=== PATIENT | male | born 1950 | race Two or more races ===

== ENCOUNTER → 2017-11-09 | Outpatient (CLI) | payer OTHER ==
[~2017-11-09] MED LIST: ASPI81TA27 PO; LISI-646 PO
== END | disposition home or self-care (01) ==
LOC: Rad HDHVI 10:36
PROVIDERS: ATTEND Internal Medicine Cardiovascular Disease
DX: I70.0 Atherosclerosis of aorta (principal); I10 Essential (primary) hypertension; I20.0 Unstable angina
CPT/HCPCS: 93306

== ENCOUNTER → 2017-11-23 | Outpatient (CLI) | payer OTHER ==
[~2017-11-23] VITALS: Ht 157.5 cm; Wt 77.1 kg
== END | disposition home or self-care (01) ==
LOC: Rad HDHVI 07:52
PROVIDERS: ATTEND Internal Medicine Cardiovascular Disease
DX: I10 Essential (primary) hypertension (principal); I21.9 Acute myocardial infarction, unspecified; E78.5 Hyperlipidemia, unspecified; I12.9 Hypertensive chronic kidney disease with stage 1 through stage 4 chronic kidney disease, or unspecified chronic kidney disease; N18.2 Chronic kidney disease, stage 2 (mild); I20.0 Unstable angina; Z82.49 Family history of ischemic heart disease and other diseases of the circulatory system; Z79.899 Other long term (current) drug therapy
CPT/HCPCS: 78452; 93017; 96374; A9500

== ENCOUNTER 2019-12-12 10:51 | Inpatient (IN) | payer OTHER ==
[~2019-12-12] VITALS: Ht 157.5 cm; Wt 73.2 kg
[~2019-12-12 10:51] MED LIST changes: +ASPI-404 PO; -ASPI81TA27 PO
[2019-12-12] MEDS ORDERED: ASPirin 81 mg TAB PO ONE (11:15)
[2019-12-12 11:18] LABS: Basophils # (auto) 0 10 ^3/uL (0-0.2); Basophils % (auto) 0.7 % (0.0-2.0); Eosinophils # (auto) 0.1 10 ^3/uL (0-0.8); Eosinophils % (auto) 1.7 % (0.0-7.0); Hematocrit 48.8 % (41.0-53.0); Hemoglobin 16.9 g/dL (13.5-17.5); Lymphocytes % (auto) 32.4 % (10.0-50.0); Mean Corpuscular Hemoglobin 31.7 pg (28.0-32.0); Mean Corpuscular Hgb Conc. 34.7 g/dL (32.0-36.0); Mean Corpuscular Volume 91.3 fL (80.0-100.0); Monocytes # (auto) 0.8 10 ^3/uL (0-1.3); Monocytes % (auto) 12.7 % (0.0-12.0); Neutrophils # (auto) 3.3 10 ^3/uL (1.6-8.6); Neutrophils % (auto) 52.5 % (37.0-80.0); Nucleated Red Blood Cells % 0.1 %; Platelet Count (auto) 219 10^3/uL (140-450); Red Blood Cells 5.35 10^6/uL (4.5-5.90); Red Cell Distribution Width 13.8 % (11.8-14.3); White Blood Cell 6.2 10^3/uL (4.4-10.8)
[2019-12-12 11:39] LABS: Albumin 3.7 g/dL (3.4-5.0); Calcium 8.7 mg/dL (8.5-10.1); Magnesium 2.3 mg/dL (1.6-2.6); Potassium 4.1 mmol/L (3.5-5.1)
[2019-12-12 11:44] LABS: BUN/Creatinine Ratio 11.9; Bilirubin, Total 0.7 mg/dL (0.2-1.0); Total Protein 8.4 g/dL (6.4-8.2)
[2019-12-12] MEDS ORDERED: HEPARIN DRIP/D5W 100UNITS/ML 250 ML IV SCH (11:54)
[2019-12-12] MEDS ORDERED: HEPARIN 1,000 UNITS/ml 1ML VIAL IV ONE (12:00)
[2019-12-12] MEDS ORDERED: DEXTROSE (50%) 50ML SYRG IV PRN (12:00)
[2019-12-12] MEDS ORDERED: HEPARIN SODIUM (PORCINE) 5000 UNITS/ML 1ML VIAL IV ONE (12:00)
[2019-12-12] MEDS ORDERED: NITROGLYCERIN 0.4 MG SL TAB SL PRN (12:00)
[2019-12-12] MEDS ORDERED: MORPHINE SULF INJ 2 MG/ML SYRINGE 1ML IV PRN (12:00)
[2019-12-12 12:34] LABS: INR 1.03 (0.9-1.15); Partial Thromboplastin Time 27.3 sec (23.64-32.05)
[2019-12-12] MEDS ORDERED: SODIUM CHLORIDE 0.9% 500 ML IV ONE (14:33)
[2019-12-12] MEDS ORDERED: LIDOCAINE 2%HCL (LOCAL ANESTH.) INJ 20ML MDV ONE (15:04)
[2019-12-12] MEDS ORDERED: IOHEXOL 350 MG/ML 100ML IJ ONE (15:04)
[2019-12-12] MEDS ORDERED: ANGIOMAX 250 MG VIAL IV ONE (15:12)
[2019-12-12] MEDS ORDERED: MIDAZOLAM HCL 1MG/1ML-2 ML VIAL ONE (15:12)
[2019-12-12] MEDS ORDERED: fentaNYL CITRATE 100 MCG/2 ML VL ONE (15:12)
[2019-12-12] MEDS ORDERED: SODIUM CHL 0.9% 0 ML ONE (15:12)
[2019-12-12] MEDS: ACCU-CHEK COMFORT CURVE STRIP VI SCH ×2 (17:00→21:20)
[2019-12-12] MEDS: InsuLIN REG 1unit/0.01ml Soln (100units/ml) SC SCH ×2 (17:00→21:22)
[2019-12-12 17:19] VITALS: BP 146/87
[2019-12-12] MEDS: ATORVASTATIN 20 MG TAB PO SCH (21:20)
[2019-12-12 22:00] VITALS: BP 133/87
[2019-12-13 05:55] LABS: Basophils # (auto) 0.1 10 ^3/uL (0-0.2); Basophils % (auto) 0.7 % (0.0-2.0); Eosinophils # (auto) 0.1 10 ^3/uL (0-0.8); Eosinophils % (auto) 1.9 % (0.0-7.0); Hematocrit 45.7 % (41.0-53.0); Hemoglobin 16.1 g/dL (13.5-17.5); Lymphocytes % (auto) 29.6 % (10.0-50.0); Mean Corpuscular Hemoglobin 32.2 pg (28.0-32.0); Mean Corpuscular Hgb Conc. 35.2 g/dL (32.0-36.0); Mean Corpuscular Volume 91.5 fL (80.0-100.0); Monocytes # (auto) 0.4 10 ^3/uL (0-1.3); Monocytes % (auto) 6.3 % (0.0-12.0); Neutrophils # (auto) 4.2 10 ^3/uL (1.6-8.6); Neutrophils % (auto) 61.5 % (37.0-80.0); Nucleated Red Blood Cells % 0.1 %; Platelet Count (auto) 196 10^3/uL (140-450); Red Cell Distribution Width 13.6 % (11.8-14.3); White Blood Cell 6.8 10^3/uL (4.4-10.8)
[2019-12-13 06:03] VITALS: BP 125/77
[2019-12-13] MEDS: ACCU-CHEK COMFORT CURVE STRIP VI SCH ×2 (06:13→11:30)
[2019-12-13] MEDS: InsuLIN REG 1unit/0.01ml Soln (100units/ml) SC SCH ×2 (06:13→11:30)
[2019-12-13 06:22] LABS: BUN/Creatinine Ratio 14.4; Calcium 8.4 mg/dL (8.5-10.1); Potassium 3.8 mmol/L (3.5-5.1)
[2019-12-13 09:00] VITALS: BP 135/76
[2019-12-13] MEDS: ASPirin 81 mg TAB PO SCH (12:52)
[2019-12-13 13:20] VITALS: BP 143/86
[2019-12-13 17:00] VITALS: BP 129/83
[2019-12-13] MEDS: ATORVASTATIN 20 MG TAB PO SCH (21:10)
[2019-12-13 21:54] VITALS: BP 119/72
[2019-12-14] VITALS (7 sets, daily range): BP systolic 112–136; BP diastolic 69–84
[2019-12-14] MEDS ORDERED: ceFAZolin 1GM 2 GM in D5W 5% 50 ML IV ONE (06:15)
[2019-12-14] MEDS ORDERED: MORPHINE SULF INJ 2 MG/ML SYRINGE 1ML IV PRN (06:15)
[2019-12-14] MEDS ORDERED: NITROGLYCERIN 0.4 MG SL TAB SL PRN (06:15)
[2019-12-14 07:34] LABS: Basophils # (auto) 0.1 10 ^3/uL (0-0.2); Basophils % (auto) 0.7 % (0.0-2.0); Eosinophils # (auto) 0.1 10 ^3/uL (0-0.8); Hematocrit 45.5 % (41.0-53.0); Lymphocytes # (auto) 1.8 10 ^3/uL (0.4-5.4); Lymphocytes % (auto) 25.5 % (10.0-50.0); Mean Corpuscular Hemoglobin 31.8 pg (28.0-32.0); Mean Corpuscular Hgb Conc. 35.1 g/dL (32.0-36.0); Mean Corpuscular Volume 90.5 fL (80.0-100.0); Monocytes # (auto) 0.7 10 ^3/uL (0-1.3); Monocytes % (auto) 9.5 % (0.0-12.0); Neutrophils # (auto) 4.5 10 ^3/uL (1.6-8.6); Neutrophils % (auto) 62.3 % (37.0-80.0); Nucleated Red Blood Cells % 0.2 %; Platelet Count (auto) 200 10^3/uL (140-450); Red Blood Cells 5.03 10^6/uL (4.5-5.90); Red Cell Distribution Width 13.7 % (11.8-14.3); White Blood Cell 7.2 10^3/uL (4.4-10.8)
[2019-12-14 07:51] LABS: Albumin 3.2 g/dL (3.4-5.0); Calcium 8.3 mg/dL (8.5-10.1); Potassium 3.8 mmol/L (3.5-5.1)
[2019-12-14 07:53] LABS: BUN/Creatinine Ratio 16.5
[2019-12-14 07:56] LABS: Bilirubin, Total 0.9 mg/dL (0.2-1.0); Total Protein 7.1 g/dL (6.4-8.2)
[2019-12-14 08:46] LABS: Cholesterol 201 mg/dL (< 200); Triglycerides 215 mg/dL (< 150)
[2019-12-14 08:48] LABS: HDL Cholesterol 33 mg/dL (40-59); LDL Cholesterol 141 mg/dL (< 100)
[2019-12-14] MEDS: ASPirin 81 mg TAB PO SCH (10:17)
[2019-12-14] MEDS: ATORVASTATIN 20 MG TAB PO SCH (22:06)
[2019-12-15 04:30] VITALS: BP 110/71
[2019-12-15 06:21] LABS: Basophils # (auto) 0 10 ^3/uL (0-0.2); Basophils % (auto) 0.7 % (0.0-2.0); Eosinophils # (auto) 0.2 10 ^3/uL (0-0.8); Eosinophils % (auto) 2.3 % (0.0-7.0); Hematocrit 48.4 % (41.0-53.0); Hemoglobin 16.3 g/dL (13.5-17.5); Lymphocytes # (auto) 1.9 10 ^3/uL (0.4-5.4); Lymphocytes % (auto) 27.1 % (10.0-50.0); Mean Corpuscular Hemoglobin 30.7 pg (28.0-32.0); Mean Corpuscular Hgb Conc. 33.6 g/dL (32.0-36.0); Mean Corpuscular Volume 91.5 fL (80.0-100.0); Monocytes # (auto) 0.7 10 ^3/uL (0-1.3); Monocytes % (auto) 9.4 % (0.0-12.0); Neutrophils # (auto) 4.3 10 ^3/uL (1.6-8.6); Neutrophils % (auto) 60.5 % (37.0-80.0); Platelet Count (auto) 219 10^3/uL (140-450); Red Blood Cells 5.29 10^6/uL (4.5-5.90); Red Cell Distribution Width 13.8 % (11.8-14.3)
[2019-12-15 06:40] LABS: Calcium 8.7 mg/dL (8.5-10.1); Potassium 3.9 mmol/L (3.5-5.1)
[2019-12-15 06:46] LABS: Albumin 3.2 g/dL (3.4-5.0); Bilirubin, Total 0.8 mg/dL (0.2-1.0); Total Protein 7.4 g/dL (6.4-8.2)
[2019-12-15 09:00] VITALS: BP 134/84
[2019-12-15] MEDS: ASPirin 81 mg TAB PO SCH (10:00)
[2019-12-15 17:00] VITALS: BP 118/68
[2019-12-15 20:00] VITALS: BP 138/75
[2019-12-15] MEDS ORDERED: MUPIROCIN 2% OINT 15gm or 22gm TOP SCH (21:00)
[2019-12-15] MEDS: MUPIROCIN 2% OINT 15gm or 22gm TOP SCH (21:17)
[2019-12-15] MEDS: ATORVASTATIN 20 MG TAB PO SCH (21:34)
[2019-12-15 21:39] VITALS: BP 138/75
[2019-12-15] MEDS ORDERED: ASCORBIC ACID 500 MG TAB PO ONE (22:00)
[2019-12-16] VITALS (48 sets, daily range): BP systolic 21–152; BP diastolic 11–78
[2019-12-16] MEDS ORDERED: CHLORHEXIDINE 4% TOPICAL soln 118ml TOP ONE (02:00)
[2019-12-16] MEDS ORDERED: BACITRACIN INJ 50000 UNIT VIAL ONE ×2 (05:01→12:36)
[2019-12-16] MEDS ORDERED: NEOMYCIN-BACITRACIN-POLYM 15GM TOP OINT TOP ONE (05:01)
[2019-12-16] MEDS ORDERED: PAPAVERINE HCL 60 MG/2 ML 2ML VIAL ONE (05:01)
[2019-12-16] MEDS ORDERED: HEPARIN 1,000 UNITS/ml 1ML VIAL ONE (05:01)
[2019-12-16] MEDS ORDERED: VANCOMYCIN HCL 1000 MG VL ONE (05:02)
[2019-12-16] MEDS ORDERED: NITROGLYCERIN 50MG/250ML 250 ML IV ONE (05:39)
[2019-12-16] MEDS ORDERED: ROCURONIUM 10MG/ML 10ML VIAL IV ONE ×2 (05:42→07:52)
[2019-12-16] MEDS ORDERED: PROPOFOL 10 MG/ML 20 ML IV ONE ×2 (05:42→07:06)
[2019-12-16] MEDS ORDERED: PHENYLEPHRINE HCL 10 MG/ML VL ONE (05:43)
[2019-12-16] MEDS ORDERED: VANCOMYCIN 1GM/250ML 250 ML IV ONE ×2 (05:58→06:15)
[2019-12-16] MEDS ORDERED: HEPARIN 30000 UNITS in SODIUM CHLORIDE 0.9% 1000 ML IV ONE (06:00)
[2019-12-16] MEDS ORDERED: NOREPINEPHRINE 8 MG/250ML KIT 250 ML IV ONE (06:00)
[2019-12-16] MEDS ORDERED: InsuLIN R (HUMAN) 100 UNITS in SODIUM CHL 0.9% 99 ML IV ONE (06:00)
[2019-12-16] MEDS ORDERED: PHENYLEPHRINE INJ 20 MG in SODIUM CHL 0.9% 250 ML IV ONE (06:00)
[2019-12-16] MEDS ORDERED: TRANEXAMIC ACID 1,000 mg/10ml INJ VIAL IV ONE ×2 (06:00→15:15)
[2019-12-16] MEDS ORDERED: EPINEPHrine HCL 4 MG in D5W 5% 250 ML IV ONE (06:00)
[2019-12-16] MEDS ORDERED: AMINOCAPROIC ACID 10 GM in SODIUM CHL 0.9% 100 ML IV ONE (06:00)
[2019-12-16] MEDS ORDERED: AMINOCAPROIC ACID 5 GM in SODIUM CHL 0.9% 250 ML IV ONE (06:00)
[2019-12-16] MEDS ORDERED: TRANEXAMIC ACID 1,000 MG in SODIUM CHL 0.9% 100 ML IV ONE (06:00)
[2019-12-16] MEDS: MUPIROCIN 2% OINT 15gm or 22gm TOP SCH (06:06)
[2019-12-16] MEDS ORDERED: MIDAZOLAM HCL 1MG/1ML-2 ML VIAL ONE (06:08)
[2019-12-16] MEDS ORDERED: CHLORHEXIDINE 0.12% ORAL rinse 473ML MT ONE (06:15)
[2019-12-16] MEDS ORDERED: ACCU-CHEK COMFORT CURVE STRIP VI ONE (06:15)
[2019-12-16] MEDS ORDERED: ceFAZolin 1GM 2 GM in D5W 5% 50 ML IV ONE (06:15)
[2019-12-16] MEDS ORDERED: MANNITOL FTV 25% 12.5 GM/50 ML 100 ML IV ONE (07:01)
[2019-12-16] MEDS ORDERED: [UNRECOGNIZED DRUG - MIXTURE] INJ ONE (07:02)
[2019-12-16] MEDS ORDERED: ALBUMIN 25% 400 ML IV ONE (07:02)
[2019-12-16] MEDS ORDERED: MANNITOL 20 % (20GM/100ML) 500 ML IV ONE (07:02)
[2019-12-16] MEDS ORDERED: fentaNYL CITRATE 5 ML ONE ×2 (07:06→10:30)
[2019-12-16 08:49] LABS: Urine Bacteria NONE SEEN /hpf (None Seen); Urine Blood Negative /uL (Negative); Urine Specific Gravity 1.015 (1.001-1.035); Urine WBC <1 /hpf (0 - 3)
[2019-12-16] MEDS ORDERED: PROPOFOL 100 ML IV ONE (10:02)
[2019-12-16] MEDS ORDERED: PROTAMINE SULFATE 250 MG/25 ML VL IV ONE (10:12)
[2019-12-16] MEDS ORDERED: phytonadione 1 ML ONE (11:42)
[2019-12-16 12:21] LABS: Basophils # (auto) 0 10 ^3/uL (0-0.2); Eosinophils # (auto) 0 10 ^3/uL (0-0.8); Hematocrit 20.9 % (41.0-53.0); Lymphocytes % (auto) 10.1 % (10.0-50.0); Monocytes # (auto) 0.3 10 ^3/uL (0-1.3)
[2019-12-16 12:25] LABS: Basophils % (auto) 0.1 % (0.0-2.0); Eosinophils % (auto) 0.2 % (0.0-7.0); Hemoglobin 7.4 g/dL (13.5-17.5); Lymphocytes # (auto) 1.2 10 ^3/uL (0.4-5.4); Mean Corpuscular Hemoglobin 32.3 pg (28.0-32.0); Mean Corpuscular Hgb Conc. 35.4 g/dL (32.0-36.0); Mean Corpuscular Volume 91.2 fL (80.0-100.0); Monocytes % (auto) 2.5 % (0.0-12.0); Neutrophils # (auto) 10.1 10 ^3/uL (1.6-8.6); Neutrophils % (auto) 87.1 % (37.0-80.0); Platelet Count (auto) 107 10^3/uL (140-450); Red Blood Cells 2.29 10^6/uL (4.5-5.90); Red Cell Distribution Width 13.4 % (11.8-14.3); White Blood Cell 11.6 10^3/uL (4.4-10.8)
[2019-12-16 12:39] LABS: INR 1.45 (0.9-1.15)
[2019-12-16 12:47] LABS: Albumin 3.4 g/dL (3.4-5.0); Calcium 7.6 mg/dL (8.5-10.1); Potassium 4.6 mmol/L (3.5-5.1)
[2019-12-16 12:50] LABS: BUN/Creatinine Ratio 15.7; Bilirubin, Total 0.7 mg/dL (0.2-1.0); Total Protein 5.1 g/dL (6.4-8.2)
[2019-12-16] MEDS ORDERED: fentaNYL CITRATE 100 MCG/2 ML VL ONE (13:04)
[2019-12-16] MEDS: DOPamine 1600MCG/ML D5W 250 ML IV SCH (14:46)
[2019-12-16] MEDS: INSULIN DRIP 100 UNIT/100ML 100 ML IV SCH (14:46)
[2019-12-16] MEDS: NOREPINEPHRINE 8 MG/250ML KIT 250 ML IV SCH (14:46)
[2019-12-16] MEDS: SODIUM CHLORIDE 0.9% 500 ML IV SCH ×2 (14:46→23:15)
[2019-12-16] MEDS: MILRINONE 20MG/100ML 100 ML IV SCH ×2 (14:46→23:29)
[2019-12-16] MEDS ORDERED: NITROGLYCERIN 50MG/250ML 250 ML IV SCH (14:46)
[2019-12-16] MEDS: PHENYLEPHRINE IV 250 ML IV SCH (14:46)
[2019-12-16 14:48] LABS: Basophils # (auto) 0 10 ^3/uL (0-0.2); Basophils % (auto) 0.3 % (0.0-2.0); Eosinophils # (auto) 0 10 ^3/uL (0-0.8); Eosinophils % (auto) 0.1 % (0.0-7.0); Hematocrit 24.2 % (41.0-53.0); Hemoglobin 8.8 g/dL (13.5-17.5); Lymphocytes # (auto) 0.6 10 ^3/uL (0.4-5.4); Lymphocytes % (auto) 8.1 % (10.0-50.0); Mean Corpuscular Hemoglobin 32.1 pg (28.0-32.0); Mean Corpuscular Hgb Conc. 36.2 g/dL (32.0-36.0); Mean Corpuscular Volume 88.6 fL (80.0-100.0); Monocytes # (auto) 0.6 10 ^3/uL (0-1.3); Monocytes % (auto) 7.6 % (0.0-12.0); Neutrophils # (auto) 6.4 10 ^3/uL (1.6-8.6); Neutrophils % (auto) 83.9 % (37.0-80.0); Platelet Count (auto) 104 10^3/uL (140-450); Red Blood Cells 2.73 10^6/uL (4.5-5.90); Red Cell Distribution Width 14.4 % (11.8-14.3); White Blood Cell 7.7 10^3/uL (4.4-10.8)
[2019-12-16] MEDS ORDERED: AMIODARONE HCL 900 MG in DEXTROSE 500 ML IV SCH (14:56)
[2019-12-16] MEDS ORDERED: SODIUM BICARBONATE 8.4% INJ 50ML SYRINGE IV PRN (15:00)
[2019-12-16] MEDS ORDERED: AMIODARONE HCL 150 MG in D5W 5% 100 ML IV ONE (15:00)
[2019-12-16] MEDS ORDERED: ONDANSETRON HCL 4 MG/2 ML VIAL IV PRN (15:00)
[2019-12-16] MEDS ORDERED: MORPHINE SULFATE 4 MG/ML SYR/VIAL IV PRN (15:00)
[2019-12-16] MEDS ORDERED: DEXTROSE (50%) 50ML SYRG IV PRN (15:00)
[2019-12-16] MEDS ORDERED: METOCLOPRAMIDE HCL 5MG/ml INJ 2ml VIAL IV PRN (15:00)
[2019-12-16] MEDS ORDERED: MORPHINE SULF INJ 2 MG/ML SYRINGE 1ML IV PRN (15:00)
[2019-12-16] MEDS ORDERED: fentaNYL CITRATE 100 MCG/2 ML VL IV PRN (15:00)
[2019-12-16] MEDS: ACCU-CHEK COMFORT CURVE STRIP VI SCH ×9 (15:00→23:13)
[2019-12-16] MEDS: D5W/SOD CHL 0.45% 1,000 ML IV SCH ×2 (15:00→23:00)
[2019-12-16] MEDS ORDERED: ALBUMIN 25% 250 ML IV PRN (15:00)
[2019-12-16] MEDS ORDERED: ZOLPIDEM TARTRATE 5 MG TAB PO PRN (15:00)
[2019-12-16] MEDS ORDERED: CALCIUM GLUC 4.65meq/50ml D5AE 50 ML IV PRN (15:00)
[2019-12-16] MEDS ORDERED: NITROGLYCERIN 0.4 MG SL TAB SL PRN (15:00)
[2019-12-16] MEDS ORDERED: MAGNESIUM SULFATE 1GM/100ML 100 ML IV PRN (15:00)
[2019-12-16 15:04] LABS: INR 1.23 (0.9-1.15)
[2019-12-16] MEDS ORDERED: FUROSEMIDE 20 MG/2 ML VIAL IV ONE (15:15)
[2019-12-16] MEDS ORDERED: LIDOCAINE HCL 100 MG/5ML (2%) SYRG INJ IV ONE (15:15)
[2019-12-16] MEDS ORDERED: POTASSIUM CHL 2MEQ/ML 20ML IV ONE (15:15)
[2019-12-16] MEDS ORDERED: HEPARIN SODIUM (PORCINE) 5000 UNITS/ML 1ML VIAL SC ONE (15:15)
[2019-12-16] MEDS ORDERED: CALCIUM CHLOR(10%) 100MG/ML 10ML SYRINGE IV ONE (15:15)
[2019-12-16] MEDS ORDERED: SODIUM BICARBONATE 8.4 % INJ 50ML VIAL IV ONE (15:15)
[2019-12-16] MEDS ORDERED: MAGNESIUM SULF 50% 40 MEQ/10 ML VL IV ONE (15:15)
[2019-12-16] MEDS ORDERED: CALCIUM GLUC 4.65 MEQ/10ML IV ONE (15:15)
[2019-12-16] MEDS ORDERED: ADENOSINE 6 MG/2 ML INJ IV ONE (15:15)
[2019-12-16] MEDS ORDERED: PHENYLEPHRINE HCL 10 MG/ML VL IV ONE (15:15)
[2019-12-16] MEDS ORDERED: fentaNYL Drip 2500mCg/250mlNS 250 ML IV ONE (16:15)
[2019-12-16] MEDS: MORPHINE SULFATE 4 MG/ML SYR/VIAL IV PRN (16:17)
[2019-12-16 16:33] LABS: Albumin 3.7 g/dL (3.4-5.0); Calcium 7.4 mg/dL (8.5-10.1); Magnesium 3.4 mg/dL (1.6-2.6); Potassium 3.8 mmol/L (3.5-5.1)
[2019-12-16 16:36] LABS: BUN/Creatinine Ratio 13.4; Bilirubin, Total 1.9 mg/dL (0.2-1.0); Phosphorus 1.1 mg/dL (2.5-4.90); Total Protein 5.9 g/dL (6.4-8.2)
[2019-12-16] MEDS: fentaNYL Drip 2500mCg/250mlNS 250 ML IV SCH (16:40)
[2019-12-16] MEDS: VANCOMYCIN 1GM/250ML 250 ML IV SCH (16:48)
[2019-12-16] MEDS: POTASSIUM CHL 20MEQ/100ML 100 ML IV PRN ×4 (17:37→23:16)
[2019-12-16] MEDS ORDERED: SODIUM PHOSPHATES 24 MEQ in SODIUM CHL 0.9% 100 ML IV ONE (17:45)
[2019-12-16] MEDS: ALBUTEROL SULF 2.5 MG/0.5ML(0.5%) NEB SOLN NEB SCH ×2 (18:02→22:02)
[2019-12-16] MEDS: IPRATROPIUM BROM 0.5 MG/2.5ML INH SOL NEB SCH ×2 (18:03→22:02)
[2019-12-16] MEDS: ceFAZolin 1GM 2 GM in D5W 5% 100 ML IV SCH ×2 (18:17→23:13)
[2019-12-16] MEDS: PROPOFOL 100 ML IV SCH ×2 (18:48→23:14)
[2019-12-16] MEDS: AMIODARONE HCL 900 MG in DEXTROSE 500 ML IV SCH (20:44)
[2019-12-16] MEDS: CHLORHEXIDINE 0.12% ORAL rinse 473ML MT SCH (20:44)
[2019-12-16] MEDS ORDERED: NITROGLYCERIN 50MG/250ML BTL IV ONE (20:55)
[2019-12-16 22:00] LABS: BUN/Creatinine Ratio 12.9; Calcium 7.2 mg/dL (8.5-10.1); Potassium 3.2 mmol/L (3.5-5.1)
[2019-12-16] MEDS: ACETYLCYSTEINE 10 %(100MG/ML) SOL 4ML NEB SCH (22:02)
[2019-12-16 22:06] LABS: Phosphorus 0.4 mg/dL (2.5-4.90)
[2019-12-17] VITALS (85 sets, daily range): BP systolic 16–197; BP diastolic 3–89
[2019-12-17] MEDS: ACCU-CHEK COMFORT CURVE STRIP VI SCH ×18 (01:00→23:30)
[2019-12-17 01:04] LABS: Basophils # (auto) 0 10 ^3/uL (0-0.2); Basophils % (auto) 0.1 % (0.0-2.0); Eosinophils # (auto) 0 10 ^3/uL (0-0.8); Hematocrit 22.2 % (41.0-53.0); Hemoglobin 8.1 g/dL (13.5-17.5); Lymphocytes # (auto) 0.4 10 ^3/uL (0.4-5.4); Lymphocytes % (auto) 6.7 % (10.0-50.0); Mean Corpuscular Hemoglobin 31.7 pg (28.0-32.0); Mean Corpuscular Hgb Conc. 36.2 g/dL (32.0-36.0); Mean Corpuscular Volume 87.5 fL (80.0-100.0); Monocytes # (auto) 0.3 10 ^3/uL (0-1.3); Monocytes % (auto) 3.8 % (0.0-12.0); Neutrophils % (auto) 89.4 % (37.0-80.0); Platelet Count (auto) 165 10^3/uL (140-450); Red Blood Cells 2.54 10^6/uL (4.5-5.90); White Blood Cell 6.7 10^3/uL (4.4-10.8)
[2019-12-17 01:18] LABS: Magnesium 2.6 mg/dL (1.6-2.6); Potassium 3.8 mmol/L (3.5-5.1)
[2019-12-17] MEDS: POTASSIUM CHL 20MEQ/100ML 100 ML IV PRN ×4 (01:42→06:16)
[2019-12-17] MEDS: INSULIN DRIP 100 UNIT/100ML 100 ML IV SCH (01:45)
[2019-12-17] MEDS: VANCOMYCIN 1GM/250ML 250 ML IV SCH ×2 (03:00→16:34)
[2019-12-17] MEDS: PROPOFOL 100 ML IV SCH ×2 (03:44→10:55)
[2019-12-17 05:13] LABS: Basophils # (auto) 0 10 ^3/uL (0-0.2); Eosinophils # (auto) 0 10 ^3/uL (0-0.8); Hemoglobin 8.2 g/dL (13.5-17.5); Lymphocytes # (auto) 0.6 10 ^3/uL (0.4-5.4); Lymphocytes % (auto) 6.7 % (10.0-50.0); Red Blood Cells 2.61 10^6/uL (4.5-5.90)
[2019-12-17 05:16] LABS: Basophils % (auto) 0.1 % (0.0-2.0); Hematocrit 22.7 % (41.0-53.0); Mean Corpuscular Hemoglobin 31.5 pg (28.0-32.0); Mean Corpuscular Hgb Conc. 36.3 g/dL (32.0-36.0); Mean Corpuscular Volume 86.9 fL (80.0-100.0); Monocytes # (auto) 0.6 10 ^3/uL (0-1.3); Monocytes % (auto) 6.7 % (0.0-12.0); Neutrophils # (auto) 7.4 10 ^3/uL (1.6-8.6); Neutrophils % (auto) 86.5 % (37.0-80.0); Platelet Count (auto) 176 10^3/uL (140-450); Red Cell Distribution Width 15.2 % (11.8-14.3); White Blood Cell 8.5 10^3/uL (4.4-10.8)
[2019-12-17 05:31] LABS: Potassium 3.9 mmol/L (3.5-5.1)
[2019-12-17 05:35] LABS: Albumin 3.3 g/dL (3.4-5.0); BUN/Creatinine Ratio 13.7; Calcium 7.6 mg/dL (8.5-10.1); Magnesium 2.6 mg/dL (1.6-2.6)
[2019-12-17 05:38] LABS: Bilirubin, Total 0.7 mg/dL (0.2-1.0); Total Protein 5.9 g/dL (6.4-8.2)
[2019-12-17 05:47] LABS: Phosphorus 0.9 mg/dL (2.5-4.90)
[2019-12-17] MEDS: ACETYLCYSTEINE 10 %(100MG/ML) SOL 4ML NEB SCH ×3 (05:48→22:29)
[2019-12-17] MEDS: ALBUTEROL SULF 2.5 MG/0.5ML(0.5%) NEB SOLN NEB SCH ×5 (05:48→22:29)
[2019-12-17] MEDS: IPRATROPIUM BROM 0.5 MG/2.5ML INH SOL NEB SCH ×5 (05:48→22:29)
[2019-12-17] MEDS: ceFAZolin 1GM 2 GM in D5W 5% 100 ML IV SCH ×3 (06:38→23:00)
[2019-12-17] MEDS: DOPamine 1600MCG/ML D5W 250 ML IV SCH ×2 (06:39→22:48)
[2019-12-17] MEDS: D5W/SOD CHL 0.45% 1,000 ML IV SCH ×3 (07:00→23:00)
[2019-12-17] MEDS: MORPHINE SULFATE 4 MG/ML SYR/VIAL IV PRN (07:54)
[2019-12-17] MEDS ORDERED: FUROSEMIDE 20 MG/2 ML VIAL IV ONE ×2 (08:00→21:45)
[2019-12-17] MEDS ORDERED: PANTOPRAZOLE 40 MG/10 ML VIAL INJ IV SCH (10:00)
[2019-12-17 10:12] LABS: Magnesium 2.7 mg/dL (1.6-2.6); Potassium 4.1 mmol/L (3.5-5.1)
[2019-12-17] MEDS: CHLORHEXIDINE 0.12% ORAL rinse 473ML MT SCH ×2 (10:20→22:00)
[2019-12-17] MEDS: MILRINONE 20MG/100ML 100 ML IV SCH ×2 (10:30→22:49)
[2019-12-17] MEDS ORDERED: SODIUM PHOSPHATES 40 MEQ in D5W 5% 250 ML IV ONE (11:15)
[2019-12-17] MEDS ORDERED: BISACODYL 10 MG RECT SUPP PR PRN (13:45)
[2019-12-17] MEDS ORDERED: ZOLPIDEM TARTRATE 5 MG TAB PO PRN (13:45)
[2019-12-17] MEDS ORDERED: MILK OF MAGNESIA 30ML SUSP PO PRN (13:45)
[2019-12-17] MEDS ORDERED: DEXTROSE (50%) 50ML SYRG IV PRN (13:45)
[2019-12-17] MEDS ORDERED: SENNA 8.6 MG TAB PO PRN (13:45)
[2019-12-17] MEDS ORDERED: ONDANSETRON HCL 4 MG/2 ML VIAL IV PRN (13:45)
[2019-12-17] MEDS: InsuLIN REG 1unit/0.01ml Soln (100units/ml) SC SCH ×3 (14:00→23:30)
[2019-12-17 14:37] LABS: Basophils # (auto) 0 10 ^3/uL (0-0.2); Eosinophils # (auto) 0 10 ^3/uL (0-0.8); Hematocrit 24.5 % (41.0-53.0); Hemoglobin 8.5 g/dL (13.5-17.5); Lymphocytes # (auto) 0.7 10 ^3/uL (0.4-5.4); Lymphocytes % (auto) 6.4 % (10.0-50.0); Mean Corpuscular Hemoglobin 30.4 pg (28.0-32.0); Mean Corpuscular Hgb Conc. 34.8 g/dL (32.0-36.0); Mean Corpuscular Volume 87.4 fL (80.0-100.0); Monocytes % (auto) 8.5 % (0.0-12.0); Neutrophils # (auto) 9.9 10 ^3/uL (1.6-8.6); Neutrophils % (auto) 85.1 % (37.0-80.0); Platelet Count (auto) 185 10^3/uL (140-450); Red Cell Distribution Width 15.4 % (11.8-14.3); White Blood Cell 11.6 10^3/uL (4.4-10.8)
[2019-12-17] MEDS: PHENYLEPHRINE IV 250 ML IV SCH (14:46)
[2019-12-17] MEDS: NOREPINEPHRINE 8 MG/250ML KIT 250 ML IV SCH (14:46)
[2019-12-17 14:59] LABS: Calcium 7.7 mg/dL (8.5-10.1); Magnesium 2.9 mg/dL (1.6-2.6); Phosphorus 4.7 mg/dL (2.5-4.90); Potassium 4.3 mmol/L (3.5-5.1)
[2019-12-17] MEDS ORDERED: diphenhdrAMINE HCL 50 MG/1 ML VL ONE (15:08)
[2019-12-17] MEDS ORDERED: methylPREDNISolone SOD SUCC 125 MG/2 ML VL ONE (15:08)
[2019-12-17] MEDS ORDERED: diphenhdrAMINE HCL 50 MG/1 ML VL IV ONE (15:15)
[2019-12-17] MEDS ORDERED: methylPREDNISolone SOD SUCC 125 MG/2 ML VL IV ONE (15:15)
[2019-12-17] MEDS ORDERED: AML5T PO (15:48)
[2019-12-17] MEDS ORDERED: ATOR1TAB PO (15:48)
[2019-12-17] MEDS ORDERED: ASPI-231 PO (15:48)
[2019-12-17] MEDS ORDERED: METO25TA5 PO (15:48)
[2019-12-17] MEDS ORDERED: LISI10TA6 PO (15:48)
[2019-12-17] MEDS ORDERED: CLOP75TA41 PO (15:48)
[2019-12-17] MEDS: fentaNYL Drip 2500mCg/250mlNS 250 ML IV SCH (16:11)
[2019-12-17] MEDS ORDERED: NITROGLYCERIN 0.4MG/HR TOPICAL PATCH TD ONE (16:29)
[2019-12-17] MEDS: NITROGLYCERIN 0.4MG/HR TOPICAL PATCH TD SCH (16:31)
[2019-12-17] MEDS: fentaNYL CITRATE 100 MCG/2 ML VL IV PRN ×2 (20:17→23:15)
[2019-12-17] MEDS: AMIODARONE HCL 900 MG in DEXTROSE 500 ML IV SCH (20:56)
[2019-12-17] MEDS ORDERED: FUROSEMIDE 20 MG/2 ML VIAL ONE (21:54)
[2019-12-17] MEDS: ASCORBIC ACID 500 MG TAB PO SCH (22:00)
[2019-12-17] MEDS: ATORVASTATIN 20 MG TAB PO SCH (22:00)
[2019-12-17] MEDS: POTASSIUM CHL 20 Meq TABLET PO SCH (22:00)
[2019-12-17] MEDS: METOPROLOL TARTRATE 25 MG TAB PO SCH (22:00)
[2019-12-17] MEDS: DOCUSATE SOD 100 MG CAP PO SCH (22:00)
[2019-12-18] VITALS (84 sets, daily range): BP systolic 120–163; BP diastolic 71–104
[2019-12-18] MEDS: InsuLIN REG 1unit/0.01ml Soln (100units/ml) SC SCH ×4 (02:30→18:00)
[2019-12-18] MEDS: IPRATROPIUM BROM 0.5 MG/2.5ML INH SOL NEB SCH ×5 (02:33→22:10)
[2019-12-18] MEDS: ALBUTEROL SULF 2.5 MG/0.5ML(0.5%) NEB SOLN NEB SCH ×5 (02:33→22:11)
[2019-12-18 02:34] LABS: Basophils # (auto) 0 10 ^3/uL (0-0.2); Eosinophils # (auto) 0 10 ^3/uL (0-0.8); Hematocrit 25.3 % (41.0-53.0); Hemoglobin 8.7 g/dL (13.5-17.5); Lymphocytes # (auto) 0.9 10 ^3/uL (0.4-5.4); Lymphocytes % (auto) 7.2 % (10.0-50.0); Mean Corpuscular Hemoglobin 30.6 pg (28.0-32.0); Mean Corpuscular Hgb Conc. 34.6 g/dL (32.0-36.0); Mean Corpuscular Volume 88.6 fL (80.0-100.0); Monocytes % (auto) 8.5 % (0.0-12.0); Neutrophils # (auto) 10.1 10 ^3/uL (1.6-8.6); Neutrophils % (auto) 84.3 % (37.0-80.0); Platelet Count (auto) 187 10^3/uL (140-450); Red Blood Cells 2.86 10^6/uL (4.5-5.90); Red Cell Distribution Width 15.2 % (11.8-14.3); White Blood Cell 11.9 10^3/uL (4.4-10.8)
[2019-12-18] MEDS: ACCU-CHEK COMFORT CURVE STRIP VI SCH ×5 (02:38→23:43)
[2019-12-18 02:57] LABS: Albumin 3.7 g/dL (3.4-5.0); BUN/Creatinine Ratio 16.5; Calcium 7.7 mg/dL (8.5-10.1); Magnesium 2.5 mg/dL (1.6-2.6); Potassium 4.1 mmol/L (3.5-5.1)
[2019-12-18 02:59] LABS: Bilirubin, Total 0.6 mg/dL (0.2-1.0); Total Protein 6.9 g/dL (6.4-8.2)
[2019-12-18] MEDS: VANCOMYCIN 1GM/250ML 250 ML IV SCH (03:00)
[2019-12-18 03:11] LABS: INR 1.01 (0.9-1.15)
[2019-12-18] MEDS: ACETYLCYSTEINE 10 %(100MG/ML) SOL 4ML NEB SCH ×3 (06:35→22:11)
[2019-12-18] MEDS: ceFAZolin 1GM 2 GM in D5W 5% 100 ML IV SCH (06:49)
[2019-12-18] MEDS: D5W/SOD CHL 0.45% 1,000 ML IV SCH ×2 (07:00→15:00)
[2019-12-18] MEDS ORDERED: MORPHINE SULFATE 4 MG/ML SYR/VIAL IV PRN (08:00)
[2019-12-18] MEDS ORDERED: fentaNYL CITRATE 100 MCG/2 ML VL IV ONE (08:00)
[2019-12-18] MEDS ORDERED: FUROSEMIDE 40 MG TAB PO SCH (08:00)
[2019-12-18] MEDS: MILRINONE 20MG/100ML 100 ML IV SCH ×2 (09:30→20:11)
[2019-12-18] MEDS: ASCORBIC ACID 500 MG TAB PO SCH ×2 (10:00→22:06)
[2019-12-18] MEDS: CHLORHEXIDINE 0.12% ORAL rinse 473ML MT SCH ×2 (10:00→22:11)
[2019-12-18] MEDS: POTASSIUM CHL 20 Meq TABLET PO SCH ×2 (10:00→22:00)
[2019-12-18] MEDS: DOCUSATE SOD 100 MG CAP PO SCH ×2 (10:00→22:00)
[2019-12-18] MEDS: PANTOPRAZOLE 40 MG/10 ML VIAL INJ IV SCH (10:00)
[2019-12-18] MEDS: METOPROLOL TARTRATE 25 MG TAB PO SCH ×2 (10:00→22:00)
[2019-12-18] MEDS: ASPirin 81 mg TAB PO SCH (10:00)
[2019-12-18] MEDS ORDERED: FUROSEMIDE 20 MG/2 ML VIAL IV ONE (11:00)
[2019-12-18] MEDS: fentaNYL CITRATE 100 MCG/2 ML VL IV PRN ×2 (11:02→17:01)
[2019-12-18] MEDS: NITROGLYCERIN 0.4MG/HR TOPICAL PATCH TD SCH (11:15)
[2019-12-18] MEDS ORDERED: KETOROLAC TROMETH 15 mg/ml 1ML VL IV SCH (12:00)
[2019-12-18] MEDS: KETOROLAC TROMETH 15 mg/ml 1ML VL IV SCH ×2 (13:15→19:38)
[2019-12-18] MEDS ORDERED: KETOROLAC TROMETH 30 MG/ML 1ML VIAL ONE (13:15)
[2019-12-18] MEDS: PHENYLEPHRINE IV 250 ML IV SCH (14:46)
[2019-12-18] MEDS: NOREPINEPHRINE 8 MG/250ML KIT 250 ML IV SCH (14:46)
[2019-12-18] MEDS: DOPamine 1600MCG/ML D5W 250 ML IV SCH (15:24)
[2019-12-18] MEDS: SODIUM CHLORIDE 0.9% 500 ML IV SCH (15:24)
[2019-12-18] MEDS ORDERED: DEXTROSE (50%) 50ML SYRG IV PRN (15:30)
[2019-12-18] MEDS: POTASSIUM CHL 20MEQ/100ML 100 ML IV PRN ×2 (17:03→19:37)
[2019-12-18] MEDS: METOPROLOL TARTRATE 1MG/1ML-5ML VIAL IV SCH ×2 (18:38→23:43)
[2019-12-18] MEDS: Glucerna Carbsteady SHAKE Vanilla 8oz PO SCH (20:00)
[2019-12-18] MEDS: AMIODARONE HCL 900 MG in DEXTROSE 500 ML IV SCH (20:56)
[2019-12-18] MEDS: ATORVASTATIN 20 MG TAB PO SCH (22:07)
[2019-12-18] MEDS: HYDROcodone-ACET 5/325MG TAB PO PRN (22:14)
[2019-12-19] VITALS (41 sets, daily range): BP systolic 91–167; BP diastolic 58–102
[2019-12-19] MEDS: InsuLIN REG 1unit/0.01ml Soln (100units/ml) SC SCH ×4 (00:02→19:36)
[2019-12-19] MEDS: KETOROLAC TROMETH 15 mg/ml 1ML VL IV SCH ×2 (01:36→09:28)
[2019-12-19] MEDS: fentaNYL CITRATE 100 MCG/2 ML VL IV PRN ×3 (04:33→14:44)
[2019-12-19 05:03] LABS: Basophils # (auto) 0 10 ^3/uL (0-0.2); Basophils % (auto) 0.3 % (0.0-2.0); Eosinophils # (auto) 0 10 ^3/uL (0-0.8); Eosinophils % (auto) 0.1 % (0.0-7.0); Hematocrit 26.4 % (41.0-53.0); Hemoglobin 9.2 g/dL (13.5-17.5); Lymphocytes # (auto) 1.7 10 ^3/uL (0.4-5.4); Lymphocytes % (auto) 13.7 % (10.0-50.0); Mean Corpuscular Hemoglobin 31.4 pg (28.0-32.0); Mean Corpuscular Hgb Conc. 34.9 g/dL (32.0-36.0); Mean Corpuscular Volume 89.9 fL (80.0-100.0); Monocytes % (auto) 8.1 % (0.0-12.0); Neutrophils # (auto) 9.9 10 ^3/uL (1.6-8.6); Neutrophils % (auto) 77.8 % (37.0-80.0); Platelet Count (auto) 154 10^3/uL (140-450); Red Blood Cells 2.94 10^6/uL (4.5-5.90); Red Cell Distribution Width 14.8 % (11.8-14.3); White Blood Cell 12.7 10^3/uL (4.4-10.8)
[2019-12-19 05:19] LABS: Albumin 3.5 g/dL (3.4-5.0); Calcium 8.2 mg/dL (8.5-10.1); Magnesium 2.7 mg/dL (1.6-2.6); Potassium 3.9 mmol/L (3.5-5.1)
[2019-12-19 05:23] LABS: BUN/Creatinine Ratio 25.6; Bilirubin, Total 1.1 mg/dL (0.2-1.0); Total Protein 6.9 g/dL (6.4-8.2)
[2019-12-19] MEDS: METOPROLOL TARTRATE 1MG/1ML-5ML VIAL IV SCH (06:24)
[2019-12-19] MEDS: POTASSIUM CHL 20MEQ/100ML 100 ML IV PRN (06:24)
[2019-12-19] MEDS: ACCU-CHEK COMFORT CURVE STRIP VI SCH ×3 (06:33→18:00)
[2019-12-19] MEDS: MILRINONE 20MG/100ML 100 ML IV SCH ×2 (06:34→16:16)
[2019-12-19] MEDS: DOPamine 1600MCG/ML D5W 250 ML IV SCH ×2 (06:34→22:51)
[2019-12-19] MEDS: ALBUTEROL SULF 2.5 MG/0.5ML(0.5%) NEB SOLN NEB SCH ×5 (07:11→22:13)
[2019-12-19] MEDS: IPRATROPIUM BROM 0.5 MG/2.5ML INH SOL NEB SCH ×5 (07:11→22:13)
[2019-12-19] MEDS: ACETYLCYSTEINE 10 %(100MG/ML) SOL 4ML NEB SCH ×3 (07:12→22:13)
[2019-12-19] MEDS: Glucerna Carbsteady SHAKE Vanilla 8oz PO SCH ×3 (08:45→18:30)
[2019-12-19] MEDS: CHLORHEXIDINE 0.12% ORAL rinse 473ML MT SCH ×2 (09:28→21:52)
[2019-12-19] MEDS: DOCUSATE SOD 100 MG CAP PO SCH ×2 (09:29→21:52)
[2019-12-19] MEDS: ASPirin 81 mg TAB PO SCH (09:29)
[2019-12-19] MEDS: METOPROLOL TARTRATE 25 MG TAB PO SCH ×2 (10:30→21:51)
[2019-12-19] MEDS: NITROGLYCERIN 0.4MG/HR TOPICAL PATCH TD SCH (10:30)
[2019-12-19] MEDS: POTASSIUM CHL 20 Meq TABLET PO SCH ×2 (10:30→21:51)
[2019-12-19] MEDS: ASCORBIC ACID 500 MG TAB PO SCH ×2 (10:30→21:52)
[2019-12-19] MEDS: PANTOPRAZOLE 40 MG/10 ML VIAL INJ IV SCH (10:30)
[2019-12-19] MEDS ORDERED: FUROSEMIDE 20 MG TAB PO ONE (11:45)
[2019-12-19] MEDS: HYDROcodone-ACET 5/325MG TAB PO PRN (12:31)
[2019-12-19] MEDS: ALPRAZolam 0.5 MG TAB PO PRN (14:45)
[2019-12-19] MEDS: FUROSEMIDE 20 MG TAB PO SCH (18:15)
[2019-12-19] MEDS: AMIODARONE HCL 900 MG in DEXTROSE 500 ML IV SCH (20:56)
[2019-12-19] MEDS: ATORVASTATIN 20 MG TAB PO SCH (21:52)
[2019-12-20] VITALS (25 sets, daily range): BP systolic 93–146; BP diastolic 61–83
[2019-12-20] MEDS: ACCU-CHEK COMFORT CURVE STRIP VI SCH ×4 (00:05→18:04)
[2019-12-20] MEDS: ALPRAZolam 0.5 MG TAB PO PRN (00:21)
[2019-12-20] MEDS: MILRINONE 20MG/100ML 100 ML IV SCH ×2 (04:14→14:55)
[2019-12-20] MEDS: InsuLIN REG 1unit/0.01ml Soln (100units/ml) SC SCH ×4 (06:00→18:00)
[2019-12-20] MEDS: FUROSEMIDE 20 MG TAB PO SCH ×2 (06:29→18:05)
[2019-12-20] MEDS: Glucerna Carbsteady SHAKE Vanilla 8oz PO SCH ×3 (08:00→18:04)
[2019-12-20] MEDS: ALBUTEROL SULF 2.5 MG/0.5ML(0.5%) NEB SOLN NEB SCH ×5 (08:11→22:25)
[2019-12-20] MEDS: ACETYLCYSTEINE 10 %(100MG/ML) SOL 4ML NEB SCH ×3 (08:11→22:26)
[2019-12-20] MEDS: IPRATROPIUM BROM 0.5 MG/2.5ML INH SOL NEB SCH ×5 (08:11→22:25)
[2019-12-20 09:26] LABS: Basophils # (auto) 0 10 ^3/uL (0-0.2); Basophils % (auto) 0.2 % (0.0-2.0); Eosinophils # (auto) 0.1 10 ^3/uL (0-0.8); Eosinophils % (auto) 1.3 % (0.0-7.0); Hematocrit 26.7 % (41.0-53.0); Hemoglobin 9.3 g/dL (13.5-17.5); Lymphocytes # (auto) 1.9 10 ^3/uL (0.4-5.4); Lymphocytes % (auto) 20.6 % (10.0-50.0); Mean Corpuscular Hemoglobin 31.3 pg (28.0-32.0); Mean Corpuscular Hgb Conc. 34.8 g/dL (32.0-36.0); Monocytes # (auto) 0.9 10 ^3/uL (0-1.3); Neutrophils # (auto) 6.1 10 ^3/uL (1.6-8.6); Neutrophils % (auto) 67.9 % (37.0-80.0); Nucleated Red Blood Cells % 0.1 %; Platelet Count (auto) 193 10^3/uL (140-450); Red Blood Cells 2.97 10^6/uL (4.5-5.90); Red Cell Distribution Width 14.5 % (11.8-14.3); White Blood Cell 9.1 10^3/uL (4.4-10.8)
[2019-12-20 09:43] LABS: Potassium 4.2 mmol/L (3.5-5.1)
[2019-12-20 09:50] LABS: Albumin 3.3 g/dL (3.4-5.0); Bilirubin, Total 1.6 mg/dL (0.2-1.0); Calcium 8.1 mg/dL (8.5-10.1); Total Protein 6.6 g/dL (6.4-8.2)
[2019-12-20] MEDS: POTASSIUM CHL 20 Meq TABLET PO SCH ×2 (10:47→22:00)
[2019-12-20] MEDS: METOPROLOL TARTRATE 25 MG TAB PO SCH ×2 (10:47→22:12)
[2019-12-20] MEDS: NITROGLYCERIN 0.4MG/HR TOPICAL PATCH TD SCH (10:47)
[2019-12-20] MEDS: DOCUSATE SOD 100 MG CAP PO SCH ×2 (10:48→22:00)
[2019-12-20] MEDS: ASCORBIC ACID 500 MG TAB PO SCH ×2 (10:48→22:00)
[2019-12-20] MEDS: PANTOPRAZOLE 40 MG/10 ML VIAL INJ IV SCH (10:48)
[2019-12-20] MEDS: ASPirin 81 mg TAB PO SCH (10:48)
[2019-12-20] MEDS: CHLORHEXIDINE 0.12% ORAL rinse 473ML MT SCH ×2 (10:48→22:00)
[2019-12-20] MEDS: DOPamine 1600MCG/ML D5W 250 ML IV SCH (14:52)
[2019-12-20] MEDS ORDERED: ACETAMINOPHEN 325 MG TAB PO PRN (15:15)
[2019-12-20] MEDS: AMIODARONE HCL 900 MG in DEXTROSE 500 ML IV SCH (20:56)
[2019-12-20] MEDS: ATORVASTATIN 20 MG TAB PO SCH (22:00)
[2019-12-21] VITALS (22 sets, daily range): BP systolic 95–135; BP diastolic 42–82
[2019-12-21] MEDS: InsuLIN REG 1unit/0.01ml Soln (100units/ml) SC SCH ×2 (00:30→06:00)
[2019-12-21] MEDS: HYDROcodone-ACET 5/325MG TAB PO PRN ×2 (00:30→19:49)
[2019-12-21] MEDS: ACCU-CHEK COMFORT CURVE STRIP VI SCH ×2 (00:30→06:16)
[2019-12-21] MEDS: MILRINONE 20MG/100ML 100 ML IV SCH ×3 (01:36→22:58)
[2019-12-21] MEDS: FUROSEMIDE 20 MG TAB PO SCH ×2 (06:16→18:14)
[2019-12-21 06:41] LABS: Basophils # (auto) 0 10 ^3/uL (0-0.2); Basophils % (auto) 0.2 % (0.0-2.0); Eosinophils # (auto) 0.3 10 ^3/uL (0-0.8); Eosinophils % (auto) 2.9 % (0.0-7.0); Hematocrit 29.5 % (41.0-53.0); Hemoglobin 10.2 g/dL (13.5-17.5); Lymphocytes # (auto) 1.9 10 ^3/uL (0.4-5.4); Lymphocytes % (auto) 17.2 % (10.0-50.0); Mean Corpuscular Hemoglobin 31.1 pg (28.0-32.0); Mean Corpuscular Hgb Conc. 34.6 g/dL (32.0-36.0); Mean Corpuscular Volume 89.9 fL (80.0-100.0); Monocytes # (auto) 0.9 10 ^3/uL (0-1.3); Monocytes % (auto) 8.2 % (0.0-12.0); Neutrophils % (auto) 71.5 % (37.0-80.0); Platelet Count (auto) 260 10^3/uL (140-450); Red Blood Cells 3.28 10^6/uL (4.5-5.90); Red Cell Distribution Width 14.7 % (11.8-14.3); White Blood Cell 11.2 10^3/uL (4.4-10.8)
[2019-12-21] MEDS: DOPamine 1600MCG/ML D5W 250 ML IV SCH ×2 (06:53→22:54)
[2019-12-21 07:02] LABS: Albumin 3.1 g/dL (3.4-5.0); Calcium 8.3 mg/dL (8.5-10.1); Potassium 3.9 mmol/L (3.5-5.1)
[2019-12-21] MEDS: IPRATROPIUM BROM 0.5 MG/2.5ML INH SOL NEB SCH ×4 (07:04→22:00)
[2019-12-21] MEDS: ACETYLCYSTEINE 10 %(100MG/ML) SOL 4ML NEB SCH ×3 (07:04→19:37)
[2019-12-21] MEDS: ALBUTEROL SULF 2.5 MG/0.5ML(0.5%) NEB SOLN NEB SCH ×5 (07:04→22:00)
[2019-12-21 07:06] LABS: BUN/Creatinine Ratio 23.7; Total Protein 7.1 g/dL (6.4-8.2)
[2019-12-21] MEDS: Glucerna Carbsteady SHAKE Vanilla 8oz PO SCH ×3 (07:24→18:14)
[2019-12-21] MEDS: ASPirin 81 mg TAB PO SCH (10:00)
[2019-12-21] MEDS: METOPROLOL TARTRATE 25 MG TAB PO SCH ×2 (10:00→19:50)
[2019-12-21] MEDS: POTASSIUM CHL 20 Meq TABLET PO SCH ×2 (10:09→19:49)
[2019-12-21] MEDS: ASCORBIC ACID 500 MG TAB PO SCH ×2 (10:09→19:49)
[2019-12-21] MEDS: PANTOPRAZOLE 40 MG/10 ML VIAL INJ IV SCH (10:09)
[2019-12-21] MEDS: CHLORHEXIDINE 0.12% ORAL rinse 473ML MT SCH ×2 (10:13→19:50)
[2019-12-21] MEDS: NITROGLYCERIN 0.4MG/HR TOPICAL PATCH TD SCH (10:13)
[2019-12-21] MEDS: DOCUSATE SOD 100 MG CAP PO SCH ×2 (10:14→19:50)
[2019-12-21] MEDS ORDERED: IOHEXOL 300 MG/ML 100ML BOTTLE IJ ONE (16:45)
[2019-12-21] MEDS: AMIODARONE HCL 900 MG in DEXTROSE 500 ML IV SCH (19:29)
[2019-12-21] MEDS: ATORVASTATIN 20 MG TAB PO SCH (19:49)
[2019-12-22] VITALS (14 sets, daily range): BP systolic 92–120; BP diastolic 58–69
[2019-12-22 04:22] LABS: Basophils # (auto) 0 10 ^3/uL (0-0.2); Basophils % (auto) 0.3 % (0.0-2.0); Eosinophils # (auto) 0.3 10 ^3/uL (0-0.8); Eosinophils % (auto) 2.3 % (0.0-7.0); Hematocrit 26.6 % (41.0-53.0); Hemoglobin 9.3 g/dL (13.5-17.5); Lymphocytes # (auto) 2.6 10 ^3/uL (0.4-5.4); Lymphocytes % (auto) 20.4 % (10.0-50.0); Mean Corpuscular Hemoglobin 31.3 pg (28.0-32.0); Mean Corpuscular Hgb Conc. 34.9 g/dL (32.0-36.0); Mean Corpuscular Volume 89.8 fL (80.0-100.0); Monocytes # (auto) 1.3 10 ^3/uL (0-1.3); Monocytes % (auto) 10.7 % (0.0-12.0); Neutrophils # (auto) 8.3 10 ^3/uL (1.6-8.6); Neutrophils % (auto) 66.3 % (37.0-80.0); Nucleated Red Blood Cells % 0.1 %; Platelet Count (auto) 258 10^3/uL (140-450); Red Blood Cells 2.97 10^6/uL (4.5-5.90); Red Cell Distribution Width 14.7 % (11.8-14.3); White Blood Cell 12.6 10^3/uL (4.4-10.8)
[2019-12-22 04:32] LABS: Potassium 4.2 mmol/L (3.5-5.1)
[2019-12-22 04:40] LABS: Albumin 2.9 g/dL (3.4-5.0); BUN/Creatinine Ratio 21.6; Bilirubin, Total 1.8 mg/dL (0.2-1.0); Calcium 8.3 mg/dL (8.5-10.1); Total Protein 6.7 g/dL (6.4-8.2)
[2019-12-22] MEDS: FUROSEMIDE 20 MG TAB PO SCH ×2 (05:21→17:53)
[2019-12-22] MEDS: HYDROcodone-ACET 5/325MG TAB PO PRN (05:21)
[2019-12-22] MEDS: IPRATROPIUM BROM 0.5 MG/2.5ML INH SOL NEB SCH ×5 (07:04→22:59)
[2019-12-22] MEDS: ACETYLCYSTEINE 10 %(100MG/ML) SOL 4ML NEB SCH ×3 (07:04→22:59)
[2019-12-22] MEDS: ALBUTEROL SULF 2.5 MG/0.5ML(0.5%) NEB SOLN NEB SCH ×5 (07:04→22:59)
[2019-12-22] MEDS: Glucerna Carbsteady SHAKE Vanilla 8oz PO SCH ×3 (08:00→17:52)
[2019-12-22] MEDS: MILRINONE 20MG/100ML 100 ML IV SCH (10:56)
[2019-12-22] MEDS: CHLORHEXIDINE 0.12% ORAL rinse 473ML MT SCH ×2 (10:57→23:08)
[2019-12-22] MEDS: DOCUSATE SOD 100 MG CAP PO SCH ×2 (11:00→22:00)
[2019-12-22] MEDS: ASPirin 81 mg TAB PO SCH (11:00)
[2019-12-22] MEDS: ASCORBIC ACID 500 MG TAB PO SCH (11:05)
[2019-12-22] MEDS: POTASSIUM CHL 20 Meq TABLET PO SCH ×2 (11:05→22:51)
[2019-12-22] MEDS: PANTOPRAZOLE 40 MG/10 ML VIAL INJ IV SCH (11:05)
[2019-12-22] MEDS: NITROGLYCERIN 0.4MG/HR TOPICAL PATCH TD SCH (11:45)
[2019-12-22] MEDS: ATORVASTATIN 20 MG TAB PO SCH (22:00)
[2019-12-22] MEDS: METOPROLOL TARTRATE 25 MG TAB PO SCH (22:00)
[2019-12-23 00:09] VITALS: BP 112/64
[2019-12-23 04:00] VITALS: BP 130/75
[2019-12-23] MEDS: FUROSEMIDE 20 MG TAB PO SCH ×2 (06:27→18:19)
[2019-12-23 07:40] VITALS: BP 117/67
[2019-12-23] MEDS: Glucerna Carbsteady SHAKE Vanilla 8oz PO SCH ×3 (08:00→18:18)
[2019-12-23] MEDS: ALBUTEROL SULF 2.5 MG/0.5ML(0.5%) NEB SOLN NEB SCH ×5 (08:07→21:21)
[2019-12-23] MEDS: IPRATROPIUM BROM 0.5 MG/2.5ML INH SOL NEB SCH ×5 (08:07→21:21)
[2019-12-23] MEDS: ACETYLCYSTEINE 10 %(100MG/ML) SOL 4ML NEB SCH ×3 (08:07→21:22)
[2019-12-23] MEDS: CHLORHEXIDINE 0.12% ORAL rinse 473ML MT SCH ×2 (09:50→21:56)
[2019-12-23] MEDS: PANTOPRAZOLE 40 MG/10 ML VIAL INJ IV SCH (09:50)
[2019-12-23] MEDS: POTASSIUM CHL 20 Meq TABLET PO SCH ×2 (09:50→21:57)
[2019-12-23] MEDS: DOCUSATE SOD 100 MG CAP PO SCH ×2 (09:51→21:57)
[2019-12-23] MEDS: ASPirin 81 mg TAB PO SCH (09:51)
[2019-12-23] MEDS: METOPROLOL TARTRATE 25 MG TAB PO SCH ×3 (09:51→21:58)
[2019-12-23] MEDS: NITROGLYCERIN 0.4MG/HR TOPICAL PATCH TD SCH (09:51)
[2019-12-23] MEDS: SODIUM CHLORIDE 0.9% 1,000 ML IV SCH ×2 (11:14→21:58)
[2019-12-23 11:40] VITALS: BP 112/64
[2019-12-23 15:40] VITALS: BP 122/72
[2019-12-23 20:00] VITALS: BP 128/70
[2019-12-23] MEDS ORDERED: ATORVASTATIN 20 MG TAB PO SCH (22:00)
[2019-12-24] VITALS (11 sets, daily range): BP systolic 109–139; BP diastolic 61–79
[2019-12-24] MEDS: FUROSEMIDE 20 MG TAB PO SCH ×2 (05:24→18:25)
[2019-12-24 05:47] LABS: Basophils # (auto) 0.1 10 ^3/uL (0-0.2); Basophils % (auto) 0.5 % (0.0-2.0); Eosinophils # (auto) 0.2 10 ^3/uL (0-0.8); Eosinophils % (auto) 1.6 % (0.0-7.0); Hematocrit 31.6 % (41.0-53.0); Hemoglobin 10.8 g/dL (13.5-17.5); Lymphocytes # (auto) 1.2 10 ^3/uL (0.4-5.4); Lymphocytes % (auto) 11.7 % (10.0-50.0); Mean Corpuscular Hemoglobin 31.1 pg (28.0-32.0); Mean Corpuscular Hgb Conc. 34.3 g/dL (32.0-36.0); Mean Corpuscular Volume 90.6 fL (80.0-100.0); Neutrophils % (auto) 76.2 % (37.0-80.0); Nucleated Red Blood Cells % 0.1 %; Platelet Count (auto) 330 10^3/uL (140-450); Red Blood Cells 3.48 10^6/uL (4.5-5.90); Red Cell Distribution Width 15.3 % (11.8-14.3); White Blood Cell 10.5 10^3/uL (4.4-10.8)
[2019-12-24 06:10] LABS: Potassium 4.3 mmol/L (3.5-5.1)
[2019-12-24 06:30] LABS: Calcium 8.7 mg/dL (8.5-10.1); Magnesium 2.8 mg/dL (1.6-2.6)
[2019-12-24 06:41] LABS: BUN/Creatinine Ratio 30.5
[2019-12-24] MEDS: ACETYLCYSTEINE 10 %(100MG/ML) SOL 4ML NEB SCH ×2 (07:02→14:00)
[2019-12-24] MEDS: IPRATROPIUM BROM 0.5 MG/2.5ML INH SOL NEB SCH ×4 (07:02→18:11)
[2019-12-24] MEDS: ALBUTEROL SULF 2.5 MG/0.5ML(0.5%) NEB SOLN NEB SCH ×4 (07:02→18:11)
[2019-12-24] MEDS ORDERED: ATOR20TA50 PO (09:03)
[2019-12-24] MEDS ORDERED: PANTOPRAZOLE 40 MG TAB PO SCH (10:00)
[2019-12-24] MEDS: NITROGLYCERIN 0.4MG/HR TOPICAL PATCH TD SCH (10:00)
[2019-12-24] MEDS: DOCUSATE SOD 100 MG CAP PO SCH (10:32)
[2019-12-24] MEDS: CHLORHEXIDINE 0.12% ORAL rinse 473ML MT SCH (10:32)
[2019-12-24] MEDS: Glucerna Carbsteady SHAKE Vanilla 8oz PO SCH ×3 (10:32→18:25)
[2019-12-24] MEDS: POTASSIUM CHL 20 Meq TABLET PO SCH (10:32)
[2019-12-24] MEDS: ASPirin 81 mg TAB PO SCH (10:32)
[2019-12-24] MEDS: METOPROLOL TARTRATE 25 MG TAB PO SCH (10:33)
== END 2019-12-24 20:56 | disposition home health service (06) | DRG 233 ==
LOC: ER 10:51 → TELE 10:52 → TELE-CENTR 17:17 → ICU WEST 12-16 02:36 → DOU IN ICU 12-22 15:46
PROVIDERS: ADMIT Internal Medicine; ATTEND Internal Medicine
PROC: 30233K1 Transfusion of Nonautologous Frozen Plasma into Peripheral Vein, Percutaneous Approach (ICD-10-PCS; 2019-12-16)
PROC: 30233N1 Transfusion of Nonautologous Red Blood Cells into Peripheral Vein, Percutaneous Approach (ICD-10-PCS; 2019-12-16)
PROC: 30233R1 Transfusion of Nonautologous Platelets into Peripheral Vein, Percutaneous Approach (ICD-10-PCS; 2019-12-16)
PROC: 30233M1 Transfusion of Nonautologous Plasma Cryoprecipitate into Peripheral Vein, Percutaneous Approach (ICD-10-PCS; 2019-12-16)
PROC: 0212093 Bypass Coronary Artery, Three Arteries from Coronary Artery with Autologous Venous Tissue, Open Approach (ICD-10-PCS; 2019-12-17)
PROC: 02100Z9 Bypass Coronary Artery, One Artery from Left Internal Mammary, Open Approach (ICD-10-PCS; 2019-12-17)
PROC: 06BP4ZZ Excision of Right Saphenous Vein, Percutaneous Endoscopic Approach (ICD-10-PCS; 2019-12-17)
PROC: 5A09357 Assistance with Respiratory Ventilation, Less than 24 Consecutive Hours, Continuous Positive Airway Pressure (ICD-10-PCS; 2019-12-17)
PROC: 5A1221Z Performance of Cardiac Output, Continuous (ICD-10-PCS; 2019-12-17)
PROC: 5A09357 Assistance with Respiratory Ventilation, Less than 24 Consecutive Hours, Continuous Positive Airway Pressure (ICD-10-PCS; 2019-12-18)
PROC: 5A1935Z Respiratory Ventilation, Less than 24 Consecutive Hours (ICD-10-PCS; 2019-12-18)
PROC: 0BH17EZ Insertion of Endotracheal Airway into Trachea, Via Natural or Artificial Opening (ICD-10-PCS; 2019-12-18)
PROC: 5A09357 Assistance with Respiratory Ventilation, Less than 24 Consecutive Hours, Continuous Positive Airway Pressure (ICD-10-PCS; 2019-12-19)
PROC: 5A1935Z Respiratory Ventilation, Less than 24 Consecutive Hours (ICD-10-PCS; 2019-12-19)
PROC: 0BH17EZ Insertion of Endotracheal Airway into Trachea, Via Natural or Artificial Opening (ICD-10-PCS; 2019-12-19)
PROC: 4A023N7 Measurement of Cardiac Sampling and Pressure, Left Heart, Percutaneous Approach (ICD-10-PCS; principal; 2019-12-20)
PROC: B2111ZZ Fluoroscopy of Multiple Coronary Arteries using Low Osmolar Contrast (ICD-10-PCS; 2019-12-20)
PROC: B2151ZZ Fluoroscopy of Left Heart using Low Osmolar Contrast (ICD-10-PCS; 2019-12-20)
PROC: 5A09357 Assistance with Respiratory Ventilation, Less than 24 Consecutive Hours, Continuous Positive Airway Pressure (ICD-10-PCS; 2019-12-20)
DX: I21.4 Non-ST elevation (NSTEMI) myocardial infarction (principal); J96.01 Acute respiratory failure with hypoxia; I63.9 Cerebral infarction, unspecified; I50.31 Acute diastolic (congestive) heart failure; E87.3 Alkalosis; I69.351 Hemiplegia and hemiparesis following cerebral infarction affecting right dominant side; I25.10 Atherosclerotic heart disease of native coronary artery without angina pectoris; E11.9 Type 2 diabetes mellitus without complications; J44.9 Chronic obstructive pulmonary disease, unspecified; E78.5 Hyperlipidemia, unspecified; I11.0 Hypertensive heart disease with heart failure; I25.2 Old myocardial infarction; Z79.899 Other long term (current) drug therapy; Z82.49 Family history of ischemic heart disease and other diseases of the circulatory system; Z87.891 Personal history of nicotine dependence; Z95.5 Presence of coronary angioplasty implant and graft
CPT/HCPCS: 36415; 36600; 70450; 70470; 70551; 71045; 80048; 80053; 80061; 81001; 81025; 82805; 82962; 83036; 83735; 83880; 84100; 84132; 84484; 85025; 85576; 85610; 85730; 86850; 86900; 86901; 86920; 87070; 87081; 87205; 92610; 93005; 93306; 93458; 93886; 93970; 94002; 94003; 94640; 94660; 96365; 97116; 97163; 97530; 99152; C1751; C1768; C9113; G0378; J0153; J0610; J0690; J1100; J1642; J1644; J1815; J1885; J2250; J2440; J2704; J2720; J3430; J3480; J7060; P9047

== ENCOUNTER 2020-01-11 20:13 | Emergency (ER) | payer OTHER ==
[~2020-01-11] VITALS: Ht 177.8 cm; Wt 79.4 kg
[~2020-01-11 20:13] MED LIST changes: +AML5T PO; +ATOR20TA50 PO; -LISI-646 PO; +LISI10TA6 PO; +METO25TA5 PO
[2020-01-11] MEDS ORDERED: HYDROcodone-ACET 5/325MG TAB PO ONE (22:00)
[2020-01-11 22:16] LABS: Basophils # (auto) 0.1 10 ^3/uL (0-0.2); Basophils % (auto) 0.7 % (0.0-2.0); Eosinophils # (auto) 0.3 10 ^3/uL (0-0.8); Hemoglobin 12.6 g/dL (13.5-17.5); Neutrophils # (auto) 6.3 10 ^3/uL (1.6-8.6); Nucleated Red Blood Cells % 0.1 %
[2020-01-11 22:17] LABS: Eosinophils % (auto) 3.5 % (0.0-7.0); Hematocrit 37.6 % (41.0-53.0); Lymphocytes # (auto) 1.4 10 ^3/uL (0.4-5.4); Lymphocytes % (auto) 16.4 % (10.0-50.0); Mean Corpuscular Hgb Conc. 33.4 g/dL (32.0-36.0); Mean Corpuscular Volume 86.9 fL (80.0-100.0); Monocytes # (auto) 0.5 10 ^3/uL (0-1.3); Monocytes % (auto) 6.2 % (0.0-12.0); Neutrophils % (auto) 73.2 % (37.0-80.0); Platelet Count (auto) 487 10^3/uL (140-450); Red Blood Cells 4.33 10^6/uL (4.5-5.90); Red Cell Distribution Width 15.8 % (11.8-14.3); White Blood Cell 8.7 10^3/uL (4.4-10.8)
[2020-01-11 22:29] LABS: INR 1.03 (0.9-1.15); Partial Thromboplastin Time 20.6 sec (23.64-32.05)
[2020-01-11 22:33] LABS: Albumin 3.1 g/dL (3.4-5.0); Magnesium 2.4 mg/dL (1.6-2.6); Potassium 3.7 mmol/L (3.5-5.1)
[2020-01-11 22:40] LABS: BUN/Creatinine Ratio 14.3; Bilirubin, Total 0.7 mg/dL (0.2-1.0)
[2020-01-12 08:29] VITALS: BP 131/88
== END 2020-01-12 08:50 ==
LOC: EDBD 20:13 → ER 20:16
DX: S01.81XA Laceration without foreign body of other part of head, initial encounter (principal); F03.90 Unspecified dementia, unspecified severity, without behavioral disturbance, psychotic disturbance, mood disturbance, and anxiety; R41.82 Altered mental status, unspecified; E78.5 Hyperlipidemia, unspecified; I10 Essential (primary) hypertension; I25.2 Old myocardial infarction; Z98.61 Coronary angioplasty status; Z95.1 Presence of aortocoronary bypass graft; Z86.73 Personal history of transient ischemic attack (TIA), and cerebral infarction without residual deficits; W18.39XA Other fall on same level, initial encounter; Y93.89 Activity, other specified; Y92.128 Other place in nursing home as the place of occurrence of the external cause; Y99.8 Other external cause status
CPT/HCPCS: 36415; 70450; 72125; 80053; 83735; 83880; 84443; 84484; 85025; 85610; 85730; 93005

== ENCOUNTER 2023-09-07 14:38 | Inpatient (IN) | payer MEDICARE, MEDICAID ==
[~2023-09-07] VITALS: Ht 167.6 cm; Wt 74.5 kg
[~2023-09-07 14:38] MED LIST changes: -ASPI-404 PO; +ASPI-543 PO; +LISI10TA34 PO; -LISI10TA6 PO
[2023-09-07 15:58] LABS: Basophils # (auto) 0 10 ^3/uL (0-0.2); Basophils % (auto) 0.1 % (0.0-2.0); Eosinophils # (auto) 0 10 ^3/uL (0-0.8); Hematocrit 44.5 % (41.0-53.0); Lymphocytes # (auto) 0.6 10 ^3/uL (0.4-5.4); Lymphocytes % (auto) 7.1 % (10.0-50.0); Mean Corpuscular Hemoglobin 30.6 pg (28.0-32.0); Mean Corpuscular Hgb Conc. 33.8 g/dL (32.0-36.0); Mean Corpuscular Volume 90.5 fL (80.0-100.0); Monocytes # (auto) 0.4 10 ^3/uL (0-1.3); Monocytes % (auto) 5.3 % (0.0-12.0); Neutrophils # (auto) 7.3 10 ^3/uL (1.6-8.6); Neutrophils % (auto) 87.5 % (37.0-80.0); Nucleated Red Blood Cells % 0.1 %; Red Blood Cells 4.92 10^6/uL (4.5-5.90); Red Cell Distribution Width 13.7 % (11.8-14.3); White Blood Cell 8.3 10^3/uL (4.4-10.8)
[2023-09-07 16:19] LABS: Alanine Aminotransferase 45 U/L (7-40); Albumin 3.9 g/dL (3.2-4.8); Alkaline Phosphatase 66 U/L (46-116); Anion Gap 11 (5-15); Aspartate Aminotransferase 40 U/L (13-40); BUN/Creatinine Ratio 25.7 (10.0-20.0); Blood Urea Nitrogen 26 mg/dL (9-23); Calcium 8.4 mg/dL (8.5-10.1); Carbon Dioxide 21 mmol/L (20-30); Chloride 107 mmol/L (98-107); Glucose 152 mg/dL (74-106); Potassium 3.7 mmol/L (3.5-5.1); Sodium 139 mmol/L (136-145)
[2023-09-07 16:20] LABS: Bilirubin, Total 1.8 mg/dL (0.2-1.0); Total Protein 6.3 g/dL (5.7-8.2)
[2023-09-07 17:41] LABS: Lactic Acid w/Reflex 2.1 mmol/L (0.4-2.0)
[2023-09-07] MEDS ORDERED: PIPERACILLIN-TAZOB 3.375GM 100 ML IV ONE (20:15)
[2023-09-07 20:25] VITALS: PULSE 84; RESP 18; O2SAT 90
[2023-09-07 20:25] LABS: Base Excess -4.3 mmol/L (-2.0-2.0)
[2023-09-07] MEDS ORDERED: DexAMETHasone SOD PHOS 10MG/1ML VIAL INJ IM ONE (21:00)
[2023-09-07] MEDS ORDERED: SODIUM CHLORIDE 0.9% 1,000 ML IV ONE (21:00)
[2023-09-07 21:39] LABS: COVID19 ANTIGEN SOFIA FIA NEGATIVE (NEGATIVE)
[2023-09-07 21:49] LABS: Rapid Influenza A Negative (Negative); Rapid Influenza B Negative (Negative)
[2023-09-07] MEDS ORDERED: IPRATROPIUM BROM 0.5 MG/2.5ML INH SOL NEB ONE (22:30)
[2023-09-07] MEDS ORDERED: ALBUTEROL SULF 2.5 MG/0.5ML(0.5%) NEB SOLN NEB ONE (22:30)
[2023-09-07] MEDS ORDERED: MORPHINE SULFATE INJ 2 MG/ml SYRG IV PRN (22:45)
[2023-09-07] MEDS ORDERED: NITROGLYCERIN 0.4 MG SL TAB SL PRN (22:45)
[2023-09-07 22:49] LABS: Urine Bacteria NONE SEEN /hpf (None Seen); Urine Blood Negative /uL (Negative); Urine Clarity Clear (Clear); Urine Color Yellow (Yellow); Urine Protein, UAD 1+ (Negative); Urine Urobilinogen Normal (Negative); Urine WBC 2 /hpf (0 - 3); Urine pH 5.5 (5.0-8.0)
[2023-09-07] MEDS ORDERED: SOD CHL 0.45% 1,000 ML IV ONE (23:00)
[2023-09-07 23:14] LABS: Urine Specific Gravity > 1.050 (1.001-1.035)
[2023-09-07] MEDS ORDERED: DEXTROSE (50%) 50ML SYRG IV PRN (23:15)
[2023-09-07 23:28] VITALS: BP 137/64; PULSE 75; RESP 18; O2SAT 94
[2023-09-08] VITALS (12 sets, daily range): BP systolic 99–124; BP diastolic 55–74; PULSE 67–89; RESP 18–24; TEMP 98.3–102.1; O2SAT 90–96
[2023-09-08] MEDS ORDERED: ACETAMINOPHEN 325 MG TAB PO ONE (00:45)
[2023-09-08] MEDS: IPRATROPIUM BROM 0.5 MG/2.5ML INH SOL NEB SCH ×4 (06:00→19:17)
[2023-09-08] MEDS: ALBUTEROL SULF 2.5 MG/0.5ML(0.5%) NEB SOLN NEB SCH ×4 (06:00→19:17)
[2023-09-08] MEDS: ACCU-CHEK COMFORT CURVE STRIP VI SCH ×4 (06:35→22:33)
[2023-09-08] MEDS: InsuLIN REG 1unit/0.01ml Soln (100units/ml) SC SCH ×4 (06:36→22:33)
[2023-09-08 06:37] LABS: Basophils # (auto) 0 10 ^3/uL (0-0.2); Basophils % (auto) 0.1 % (0.0-2.0); Eosinophils # (auto) 0 10 ^3/uL (0-0.8); Hematocrit 40.7 % (41.0-53.0); Lymphocytes # (auto) 0.6 10 ^3/uL (0.4-5.4); Lymphocytes % (auto) 8.6 % (10.0-50.0); Mean Corpuscular Hemoglobin 31.1 pg (28.0-32.0); Mean Corpuscular Hgb Conc. 34.5 g/dL (32.0-36.0); Mean Corpuscular Volume 90.2 fL (80.0-100.0); Monocytes # (auto) 0.2 10 ^3/uL (0-1.3); Monocytes % (auto) 2.6 % (0.0-12.0); Neutrophils # (auto) 6.2 10 ^3/uL (1.6-8.6); Neutrophils % (auto) 88.7 % (37.0-80.0); Red Blood Cells 4.51 10^6/uL (4.5-5.90)
[2023-09-08 07:02] LABS: Alanine Aminotransferase 40 U/L (7-40); Alkaline Phosphatase 65 U/L (46-116); Anion Gap 11 (5-15); Aspartate Aminotransferase 39 U/L (13-40); BUN/Creatinine Ratio 24.2 (10.0-20.0); Blood Urea Nitrogen 24 mg/dL (9-23); Calcium 8.2 mg/dL (8.7-10.4); Carbon Dioxide 21 mmol/L (20-30); Chloride 106 mmol/L (98-107); Glucose 175 mg/dL (74-106); Potassium 3.8 mmol/L (3.5-5.1); Sodium 138 mmol/L (136-145)
[2023-09-08 07:03] LABS: Bilirubin, Total 2.2 mg/dL (0.2-1.0); Total Protein 6.8 g/dL (5.7-8.2)
[2023-09-08] MEDS ORDERED: FUROSEMIDE 20 MG/2 ML VIAL IV ONE (09:45)
[2023-09-08] MEDS ORDERED: levoFLOXacin 500MG 100 ML IV SCH (10:00)
[2023-09-08] MEDS: DexAMETHasone SOD PHOS 10MG/1ML VIAL INJ IV SCH (10:51)
[2023-09-08] MEDS ORDERED: TRAZ-181 PO (11:14)
[2023-09-08] MEDS ORDERED: CLOP75TA28 PO (11:14)
[2023-09-08] MEDS ORDERED: CHOL1CAP59 PO (11:14)
[2023-09-08] MEDS ORDERED: ATOR80TA PO (11:14)
[2023-09-08] MEDS ORDERED: DULO60CA41 PO (11:14)
[2023-09-08] MEDS ORDERED: BACL20TA PO (11:14)
[2023-09-08] MEDS ORDERED: AML5T PO (11:14)
[2023-09-08] MEDS: ACETAMINOPHEN 325 MG TAB PO PRN ×2 (13:04→22:26)
[2023-09-08] MEDS: DOXYCYCLINE 100 MG TAB/CAP PO SCH ×2 (13:06→22:25)
[2023-09-08] MEDS ORDERED: FAMO-12 PO ×2 (14:59)
[2023-09-08] MEDS ORDERED: AUG875T PO ×2 (14:59)
[2023-09-08] MEDS ORDERED: DOX100T PO ×2 (14:59)
[2023-09-08] MEDS ORDERED: PRED20TA2 PO ×2 (14:59)
[2023-09-08] MEDS ORDERED: IPRA0.00 IN ×4 (15:01→15:04)
[2023-09-08] MEDS ORDERED: ALBUTEROL MEDNEB 2.5 mg/3ml NEB ONE ×2 (17:47→23:42)
[2023-09-08] MEDS: AMOXICILLIN/CLAVUL 875 MG TAB PO SCH ×2 (18:11→22:25)
[2023-09-08] MEDS: CLOPIDOGREL BISULFATE 75 MG TAB PO SCH (18:21)
[2023-09-08] MEDS: BACLOFEN 10 MG TAB PO SCH (18:22)
[2023-09-08] MEDS ORDERED: ASPirin 81 mg TAB PO SCH (22:00)
[2023-09-08] MEDS ORDERED: PATIENTS OWN MEDICATION (Duloxetine Hcl (Cymbalta) 30 MG) PO SCH (22:00)
[2023-09-08] MEDS ORDERED: CLOPIDOGREL BISULFATE 75 MG TAB PO SCH (22:00)
[2023-09-08] MEDS ORDERED: DULoxetine HCL 30 MG CAP PO SCH (22:00)
[2023-09-08] MEDS: DULoxetine HCL 30 MG CAP PO SCH (22:25)
[2023-09-08] MEDS: traZODone HCL 50 MG TAB PO SCH (22:26)
[2023-09-08] MEDS: ATORVASTATIN 20 MG TAB PO SCH (22:27)
[2023-09-08] MEDS: FAMOTIDINE 20 MG TAB PO SCH (22:27)
[2023-09-08] MEDS: METOPROLOL TARTRATE 25 MG TAB PO SCH (22:27)
[2023-09-09] VITALS (17 sets, daily range): BP systolic 100–121; BP diastolic 53–65; PULSE 67–83; RESP 18–20; TEMP 97.8–99.7; O2SAT 90–97
[2023-09-09] MEDS: IPRATROPIUM BROM 0.5 MG/2.5ML INH SOL NEB SCH ×4 (00:26→19:11)
[2023-09-09] MEDS: ALBUTEROL SULF 2.5 MG/0.5ML(0.5%) NEB SOLN NEB SCH ×4 (00:28→19:11)
[2023-09-09] MEDS: ACCU-CHEK COMFORT CURVE STRIP VI SCH ×2 (05:52→11:30)
[2023-09-09] MEDS: InsuLIN REG 1unit/0.01ml Soln (100units/ml) SC SCH ×2 (05:52→11:30)
[2023-09-09] MEDS ORDERED: ALBUTEROL MEDNEB 2.5 mg/3ml NEB ONE ×4 (06:18→23:48)
[2023-09-09] MEDS ORDERED: CLOPIDOGREL BISULFATE 75 MG TAB PO SCH (10:00)
[2023-09-09] MEDS ORDERED: PATIENTS OWN MEDICATION (Baclofen 10 MG) PO SCH (10:00)
[2023-09-09] MEDS ORDERED: BACLOFEN 10 MG TAB PO SCH (10:00)
[2023-09-09] MEDS: DexAMETHasone SOD PHOS 10MG/1ML VIAL INJ IV SCH (10:02)
[2023-09-09] MEDS: DULoxetine HCL 30 MG CAP PO SCH ×2 (10:02→22:06)
[2023-09-09] MEDS: CLOPIDOGREL BISULFATE 75 MG TAB PO SCH (10:02)
[2023-09-09] MEDS: ACETAMINOPHEN 325 MG TAB PO PRN (10:02)
[2023-09-09] MEDS: AMOXICILLIN/CLAVUL 875 MG TAB PO SCH ×2 (10:03→22:05)
[2023-09-09] MEDS: ASPirin-EC 81 mg tab PO SCH (10:03)
[2023-09-09] MEDS: DOXYCYCLINE 100 MG TAB/CAP PO SCH ×2 (10:03→22:05)
[2023-09-09] MEDS: METOPROLOL TARTRATE 25 MG TAB PO SCH ×2 (10:03→22:13)
[2023-09-09] MEDS: LISINOPRIL 10 MG TAB PO SCH (10:04)
[2023-09-09] MEDS: FAMOTIDINE 20 MG TAB PO SCH ×2 (10:04→22:05)
[2023-09-09] MEDS: BACLOFEN 10 MG TAB PO SCH (10:04)
[2023-09-09] MEDS ORDERED: FUROSEMIDE 20 MG/2 ML VIAL IV ONE (12:15)
[2023-09-09] MEDS ORDERED: HYDROcodone-ACET 10/325MG TAB PO PRN (15:15)
[2023-09-09] MEDS ORDERED: MORPHINE SULFATE INJ 2 MG/ml SYRG IV ONE (15:15)
[2023-09-09] MEDS ORDERED: HYDROcodone-ACET 5/325MG TAB PO PRN (15:15)
[2023-09-09] MEDS: traZODone HCL 50 MG TAB PO SCH (22:05)
[2023-09-09] MEDS: ATORVASTATIN 20 MG TAB PO SCH (22:06)
[2023-09-10] VITALS (11 sets, daily range): BP systolic 119–134; BP diastolic 65–79; PULSE 63–93; RESP 16–20; TEMP 98.9–102; O2SAT 91–95
[2023-09-10] MEDS: ALBUTEROL SULF 2.5 MG/0.5ML(0.5%) NEB SOLN NEB SCH ×3 (00:09→11:56)
[2023-09-10] MEDS: IPRATROPIUM BROM 0.5 MG/2.5ML INH SOL NEB SCH ×3 (00:09→11:56)
[2023-09-10] MEDS: ACETAMINOPHEN 325 MG TAB PO PRN ×2 (04:57→11:37)
[2023-09-10] MEDS ORDERED: ALBUTEROL MEDNEB 2.5 mg/3ml NEB ONE ×2 (05:34→17:45)
[2023-09-10] MEDS: DULoxetine HCL 30 MG CAP PO SCH (09:43)
[2023-09-10] MEDS: BACLOFEN 10 MG TAB PO SCH (09:43)
[2023-09-10] MEDS: AMOXICILLIN/CLAVUL 875 MG TAB PO SCH (09:43)
[2023-09-10] MEDS: DexAMETHasone SOD PHOS 10MG/1ML VIAL INJ IV SCH (09:43)
[2023-09-10] MEDS: CLOPIDOGREL BISULFATE 75 MG TAB PO SCH (09:44)
[2023-09-10] MEDS: DOXYCYCLINE 100 MG TAB/CAP PO SCH (09:44)
[2023-09-10] MEDS: ASPirin-EC 81 mg tab PO SCH (09:44)
[2023-09-10] MEDS: FAMOTIDINE 20 MG TAB PO SCH (09:44)
[2023-09-10] MEDS: LISINOPRIL 10 MG TAB PO SCH (09:44)
[2023-09-10] MEDS: METOPROLOL TARTRATE 25 MG TAB PO SCH (09:45)
[2023-09-10 11:27] LABS: Basophils # (auto) 0 10 ^3/uL (0-0.2); Basophils % (auto) 0.2 % (0.0-2.0); Eosinophils # (auto) 0 10 ^3/uL (0-0.8); Eosinophils % (auto) 0.2 % (0.0-7.0); Hematocrit 40.1 % (41.0-53.0); Hemoglobin 13.8 g/dL (13.5-17.5); Lymphocytes # (auto) 0.7 10 ^3/uL (0.4-5.4); Lymphocytes % (auto) 6.8 % (10.0-50.0); Mean Corpuscular Hgb Conc. 34.5 g/dL (32.0-36.0); Mean Corpuscular Volume 89.8 fL (80.0-100.0); Monocytes # (auto) 0.6 10 ^3/uL (0-1.3); Monocytes % (auto) 6.7 % (0.0-12.0); Neutrophils # (auto) 8.3 10 ^3/uL (1.6-8.6); Neutrophils % (auto) 86.1 % (37.0-80.0); Nucleated Red Blood Cells % 0.1 %; Red Blood Cells 4.47 10^6/uL (4.5-5.90); Red Cell Distribution Width 14.2 % (11.8-14.3); White Blood Cell 9.6 10^3/uL (4.4-10.8)
[2023-09-10 11:49] LABS: Alanine Aminotransferase 64 U/L (7-40); Albumin 3.7 g/dL (3.2-4.8); Alkaline Phosphatase 61 U/L (46-116); Anion Gap 7 (5-15); Aspartate Aminotransferase 67 U/L (13-40); BUN/Creatinine Ratio 21.8 (10.0-20.0); Blood Urea Nitrogen 22 mg/dL (9-23); Calcium 8.6 mg/dL (8.7-10.4); Carbon Dioxide 26 mmol/L (20-30); Chloride 104 mmol/L (98-107); Glucose 142 mg/dL (74-106); Potassium 4.3 mmol/L (3.5-5.1); Sodium 137 mmol/L (136-145)
[2023-09-10 11:50] LABS: Bilirubin, Total 1.4 mg/dL (0.2-1.0); Total Protein 6.2 g/dL (5.7-8.2)
[2023-09-10] MEDS ORDERED: NAPROXEN 500 MG TAB PO SCH (12:45)
[2023-09-10] MEDS ORDERED: PRED20TA2 PO ×3 (15:06→15:17)
[2023-09-10] MEDS ORDERED: DOX100T PO (15:15)
[2023-09-10] MEDS ORDERED: IPRA0.00 IN (15:15)
[2023-09-10] MEDS ORDERED: AUG875T PO (15:15)
[2023-09-10] MEDS ORDERED: ACET650T12 PO (15:19)
[2023-09-11 09:20] LABS: Hepatitis B Surface Antigen Negative (Negative)
[2023-09-11 09:45] LABS: Hepatitis C Antibody Negative (Negative)
== END 2023-09-10 16:55 | disposition home or self-care (01) | DRG 193 ==
LOC: EDBD 14:38 → ER 14:38 → EDSEX 14:38 → TELE 22:49 → TELE-WESTW 09-08 02:45 → OBSVTOIN 09-09 17:28
PROVIDERS: ADMIT Internal Medicine; ATTEND Student in an Organized Health Care Education/Training Program
DX: J18.9 Pneumonia, unspecified organism (principal); J96.01 Acute respiratory failure with hypoxia; J98.11 Atelectasis; E11.9 Type 2 diabetes mellitus without complications; E78.5 Hyperlipidemia, unspecified; F03.90 Unspecified dementia, unspecified severity, without behavioral disturbance, psychotic disturbance, mood disturbance, and anxiety; Z20.822 Contact with and (suspected) exposure to COVID-19; I10 Essential (primary) hypertension; I25.10 Atherosclerotic heart disease of native coronary artery without angina pectoris; I69.398 Other sequelae of cerebral infarction; Z79.84 Long term (current) use of oral hypoglycemic drugs; Z79.899 Other long term (current) drug therapy; Z82.49 Family history of ischemic heart disease and other diseases of the circulatory system; Z95.1 Presence of aortocoronary bypass graft; Z95.5 Presence of coronary angioplasty implant and graft; I25.2 Old myocardial infarction
CPT/HCPCS: 36415; 36600; 71045; 71275; 80053; 81001; 82550; 82805; 82962; 83036; 83605; 83880; 84484; 85025; 85379; 86803; 87040; 87340; 87426; 87804; 93005; 93306; 94640; 97163; 99291; G0378; J1100; J1815; J1956; J2543